=== PATIENT | female | born 1950 | race Caucasian/White ===

== ENCOUNTER → 2021-09-07 15:38 | Outpatient (CLI) | payer OTHER, SELFPAY ==
[2021-09-07 16:14] LABS: Add Manual Diff / Slide Review NO; Basophils Absolute Auto 0 /uL (0-100); Basophils Percent Auto 0.6 % (0-2); Eosinophils Absolute Auto 100 /uL (0-450); Eosinophils Percent Auto 2.2 % (2-4); Hematocrit 36.8 % (36-46); Hemoglobin 12.6 g/dL (12.0-16.0); Lymphocytes Absolute Auto 1400 /uL (1100-4500); Lymphocytes Percent Auto 25.9 % (25-40); Mean Corpuscular HGB Conc 34.3 % (30-36); Mean Corpuscular Hemoglobin 30.8 PG (26-34); Monocytes Absolute Auto 400 /uL (0-900); Monocytes Percent Auto 6.9 % (3-14); Neutrophils Absolute Auto 3600 /uL (1500-7000); Neutrophils Percent Auto 64.4 % (50-75); Platelet Count 268 X10^3/uL (150-400); Red Blood Cell Count 4.09 X10^6/uL (4.0-5.2); Red Cell Distribution Width 13.6 % (11.6-14.8); White Blood Cell Count 5.5 X10^3/uL (4.5-11.0)
[2021-09-07 17:47] LABS: BUN Creatinine Ratio 25.3 (6-22); Blood Urea Nitrogen 25 mg/dL (7-17); Calcium 9.5 mg/dL (8.4-10.2); Carbon Dioxide 23 mmol/L (22-32); Chloride 103 mmol/L (98-107); Estimated Glomerular Filt Rate > 60 mL/min (>60); Glucose 147 mg/dL (80-110); HEMOLYSIS < 15 (0-50); Potassium 4.2 mmol/L (3.4-5.1); Sodium 139 mmol/L (137-145)
[2021-09-08 06:28] LABS: Hemoglobin A1C% w Est Avg Glu 6.4 % (4.0-6.0)
== END ==
PROVIDERS: PCP Internal Medicine; Referring Provider Orthopaedic Surgery; Visit Provider Orthopaedic Surgery
DX: R73.9 Hyperglycemia, unspecified (principal); Z01.818 Encounter for other preprocedural examination; Z01.812 Encounter for preprocedural laboratory examination
CPT/HCPCS: 36415; 80048; 83036; 85025; 93005; 93010

== ENCOUNTER → 2021-09-26 10:55 | Outpatient (CLI) | payer OTHER, SELFPAY ==
[2021-09-26 11:54] LABS: COVID19 -Nasal RAPID Negative (Negative)
== END ==
PROVIDERS: PCP Internal Medicine; Referring Provider Orthopaedic Surgery; Visit Provider Orthopaedic Surgery
DX: Z20.822 Contact with and (suspected) exposure to COVID-19 (principal)
CPT/HCPCS: 87635; C9803

== ENCOUNTER 2021-09-28 07:29 | Day surgery (SDC) | payer OTHER, SELFPAY ==
[2021-09-14 12:56] VITALS: BMI 29.2
[2021-09-28] VITALS (15 sets, daily range): BP systolic 112–158; BP diastolic 67–94; PULSE 71–90; RESP 12–18; TEMP 36–36.8; O2SAT 92–99; BMI 29.2
[2021-09-28] MEDS: LACTATED RINGERS 1,000 ML 42 ML IV ×2 (08:01→09:50)
--- NOTE | 2021-09-28 08:25 | DI.RAD.S_ITS ---
PROCEDURE: XR KNEE LT 1TO2V INDICATIONS: post op total knee TECHNIQUE: Two views of the knee acquired. COMPARISON: None. FINDINGS: Bones: Patient is status post total knee arthroplasty. Hardware components are in expected positions. Visualized bony structures are intact. Soft tissues: Overlying postoperative changes are noted. IMPRESSION: Status post left total knee arthroplasty with expected postoperative findings. Dictated by: Harry Benz M.D. on 09/28/2021 at 10:52 Approved by: Harry Benz M.D. on 09/28/2021 at 10:53
--- NOTE | 2021-09-28 08:26 | PM.PREOP ---
Pre-operative Note COVID-19 COVID-19 status: Negative Result date/Date tested (Pos, Neg/Pending): 09/26/21 Interval Note History & Physical reviewed/Exam performed by Physician: Yes Changes to H&P: No
[2021-09-28] MEDS: CELECOXIB 200 MG CAPSULE PO (08:38)
[2021-09-28] MEDS: PREGABALIN 75 MG CAPSULE PO (08:38)
[2021-09-28] MEDS: TRANEXAMIC ACID 1,000 MG VIAL 1000 MG INJ ×2 (08:56→10:15)
[2021-09-28] MEDS: CEFAZOLIN 2 GM IN 0.9 % NACL 100 ML IV (08:56)
--- NOTE | 2021-09-28 09:15 | SUR.OPER ---
Supine on padded OR bed. Pillow under head, arms secured on padded armboards <90 degree abduction. Safety belt across torso. Non-operative leg secured with tape over blanket over lower leg. Operative leg secured in DeMayo/Fausto/Nathe positioner. Foam padded brace at thigh of operative leg. POSITION APPROVED BY SURGEON AND ANESTHESIA.
[2021-09-28] MEDS: BUPIVACAINE 0.5% W/ EPI (PF) 30 ML VIAL INJ ×2 (09:23→09:48)
[2021-09-28] MEDS: BUPIVACAINE LIPOSOME 266 MG/20 ML VIAL INJ (09:48)
[2021-09-28] MEDS: MORPHINE 4 MG/ML INJ INJ (09:48)
--- NOTE | 2021-09-28 10:25 | P.OP_ITS ---
Operative Date/Time/Diagnoses Date of procedure: 09/28/21 Time of procedure: 10:25 Pre-op diagnosis: Left knee osteoarthritis Post-op diagnosis: same Procedure & Clinicians Procedure: Left total knee replacement Same procedure as scheduled: Yes Indications: The patient has had progressively worsening left knee pain with radiographic changes consistent with arthritis. Non-operative management has failed and the patient has requested total knee replacement. The risks, benefits and alternatives to surgery were discussed with the patient prior to proceeding. Risks discussed included, but were not limited to, failure to relieve pain, stiffness, infection, nerve damage, deep venous thrombosis, pulmonary embolism, stroke, coma, heart attack, permanent paralysis and , as well as the potential need for eventual revision of the prosthetic. Surgeon: Isaias Sheehan Business Process Consultant: Thaddeus Noriega Click Yes if Unassisted: No Anesthesia Type: General and Local Operative Notes Findings: Severe medial and patellofemoral osteoarthritis with relative preservation of the lateral compartment. Closure Type: primary Specimen(s): none sent Prosthetic devices, grafts, tissues, transplants, or devices: Implants used in this procedure were manufactured by the [employer] and included the BCS II Journey total knee replacement with a size 5 left Oxinium femoral component, size 4 left non porous tibial base plate, a 9 mm cross-linked polyethylene tibial insert and a 32 mm oval Purvi II patella Applied: implant(s) Estimated Blood Loss (mL): 25 Blood products transfused: none Tourniquet time (min): 50 Procedure in detail: The patient was seen in the pre-operative area, where the left knee was identified as the operative site and this was marked with my initials. The patient received pre-operative antibiotics, and was taken to the operating room and placed on the operative table in the supine position. After satisfactory anesthesia, a motion and time study teacher out was performed. The left leg was encircled with a tourniquet about the proximal thigh, and the leg was prepared from the toes to the tourniquet with ChloroPrep in the usual fashion and draped through sterile drapes. The leg was elevated and exsanguinated with Eschmark bandage and the tourniquet inflated to 250 mmHg pressure. The knee was approached through an approximately 18 cm incision centered over the patella and carried into the knee through a medial parapatellar arthrotomy. The anterior osteophytes and soft tissues were removed. The rotational landmarks of Milton's line and the transepicondylar axis were marked on the femur with electrocautery, and intramedullary guide holes for the femur and tibia were created. The distal femoral cut was made in 6 degrees of valgus using the intramedullary guide at the +1 cut setting due to a mild flexion contracture. The proximal tibial cut was then made using the intramedullary guide, taking 9 mm of bone off the less involved side. The extension gap was checked and the rotation of the femoral component confirmed with the gap balancing blocks. The anterior, posterior and chamfer cuts were then made. The posterior osteophytes and soft tissues were then removed. The posterior capsule was injected with part of a mixture of 60 ml 0.25% Marcaine mixed with 20 ml Exparel and 4 mg of morphine for post-operative pain control. The remainder of this mixture was injected into the capsule and subcutaneous tissues during cement curing. The tibia was prepared with the rotation set by an extra medullary guide. Trial tibial and femoral components were then placed and the intercondylar notch cut through the femoral trial. Range of motion was 0-135 degrees, with good stability throughout the range. The patella was then cut to accommodate the patellar prosthetic. There was no need for a lateral release. The trials were then removed, and the femoral hole plugged with a bone plug. The bone was prepared with pulsatile lavage, and dried with a sponge. Cement was applied and the final prosthetics placed. Excess cement was removed during and after cement curing. After confirming there was no extruded cement posteriorly, the final tibial insert was placed. The knee was copiously irrigated and the tourniquet deflated. Hemostasis was obtained. The capsule was closed with interrupted # 2 polyester sutures. The subcutaneous layer was closed with 3-0 Vicryl, and the skin with a running 3-0 V-Lock suture and Dermabond. An Aquacel Ag dressing was applied and the patient was taken to recovery having tolerated the procedure well. The services of a skilled certified registered dental assistant were necessary to complete this case in an expedient manner. Correct positioning of the leg and retraction as well as suction and assistance with guide placement was necessary. Without the services of Mr. Noriega this case would not have been completed in a timely fashion. Complications: none Post-operative Condition: stable Disposition: PACU Plan for aftercare: The patient will be maintained on a standard total knee replacement protocol with weight bearing as tolerated. The patient will receive aspirin and sequential compression devices for DVT prophylaxis. The patient will be disch arged home when safe for the home environment.
[2021-09-28] MEDS: fentaNYL 100 MCG/2 ML INJ IV ×2 (10:32→10:44)
[2021-09-28] MEDS: HYDROMORPHONE 2 MG INJ IV ×2 (10:40→10:55)
[2021-09-28] MEDS: OXYCODONE/ACETAMINOPHEN 5/325 TABLET 1 TAB PO (10:42)
[2021-09-28] MEDS: OXYCODONE IR 5 MG TABLET PO (11:21)
--- NOTE | 2021-09-28 11:26 | SUR.PHASEI ---
report called to Sherry GAVIRIA and opportunity for questions given. pt is being transferred to room 204. pt updated on plan of care and is agreeable.
[2021-09-28] MEDS: ALPRAZolam 0.25 MG TABLET PO (11:35)
[2021-09-28] MEDS: LACTATED RINGERS 1,000 ML 100 ML IV ×2 (12:35→18:01)
--- NOTE | 2021-09-28 15:07 | PC.NURSE ---
Pt arrived from PACU @ 1145 Alert/oriented denies discomfort @ this time IVF infusing via pump as per MD orders into the LFA w\o incidence. Dsg to left knee CDI pulses ++ Call ligth w/in reach, bed alarm on for pt safety. Continue w/ plan of care.
--- NOTE | 2021-09-28 15:30 | PT.IIE ---
Current Diagnoses Unilateral primary osteoarthritis, left knee (09/28/21) Surgery Performed Operation Date: 09/28/21 08:45 Actual Procedures p Total Knee Arthroplasty(Left) - Isaias Sheehan MD Surgical History (Last Updated 09/14/21 @ 13:29 by Vivian Moon RN) History of arthroplasty of right knee History of hysterectomy Hx of colonoscopy Hx of dilation and curettage Hx of lithotripsy Hx of tonsillectomy Hx of tubal ligation Medical History (Last Reviewed 09/28/21 @ 08:01 by Oscar Kuhn RN) Acid reflux Arthritis Diabetes Gout HLD (hyperlipidemia) HTN (hypertension) Kidney stones Neuropathy Osteoarthritis Physical Therapy Inpatient Evaluation/Re-Eval M1 PT/OT-IP Prior Functional Status Start: 09/28/21 17:03 Freq: NEEDED Status: Active Protocol: Document 09/28/21 15:30 AB (Rec: 09/28/21 17:39 AB [id number]) Medical Review Prior Functional Status Medical History Reviewed Yes Communication able to make needs known Mobility and Gait pt stated that she is indpeendent with all mobilities and ambulation without AD Social History Household Members none Living Arrangements House Number of Floors (Floors) One Floor Number of Stairs To Enter/Railing? no steps to enter Home Environment Standard Height Toilet,Tub/ Shower Home Equipment Front Wheel Walker,Raised Toilet Seat Without Armrests, Hand Held Shower,Grab Bars In Shower Additional Social History Comment daughter will stay with pt until Sunday and stated that she has a friend who might also assist if needed pt has a tripod cane/benecane M2 PT-IP Current Condition Start: 09/28/21 17:03 Freq: NEEDED Status: Active Protocol: Document 09/28/21 15:30 AB (Rec: 09/28/21 17:39 AB [email or web address]) Physical Therapy Current Condition Current Condition Evaluation Date 09/28/21 Treatment Diagnosis s/p L TKA; difficulty in walking Onset Date 09/28/21 M3 PT-IP Subjective Start: 09/28/21 17:03 Freq: NEEDED Status: Active Protocol: Document 09/28/21 15:30 AB (Rec: 09/28/21 17:39 AB [email or web address]) Subjective Physical Therapy Visit Type Type Initial Evaluation Visit Start Time 15:30 Visit Stop Time 16:32 Total Visit Minutes 62 Number of HAND CANDY MOLDER Visits 0 Physical Therapy Visit Comments Patient Comments agreeable to do PT M4 PT-IP Mobility and Gait Start: 09/28/21 17:03 Freq: NEEDED Status: Active Protocol: Document 09/28/21 15:30 AB (Rec: 09/28/21 17:39 AB [email or web address]) PT-Bed Mobility Assessment Supine to Sit Supine to Sit Moderate Assistance PT-Transfer Assessment Sit to and From Stand Sit to and from Stand Moderate Assistance,1 Person Assistance,Use of Upper Extremities Equipment Transfer Assistive Device Gait Belt,Front Wheeled Walker Orthotic/Prosthetic Devices or Brace: No Transfers Transfer Destination Bedside Commode Transfer Technique Stand Step Pivot Transfer Ability Level of Assist Moderate Assistance,1 Person Assistance,Use of Upper Extremities Comments Mobility Comments pt completed supine to sit mod A and max cues for techniques . c/o increase L knee pain of 6/10 with movement. able to sit on EOB SBA. requested to use the toilet. completed sit to stand mod A and cues. cued for steadiness and use of FWW for support. step transfer using fWW to bedside commode mod A and cues. mod to max A for controlled descent to the toilet. completed sit to stand from bedside commode mod A. Assisted with brief management . (+) LOB during standing using FWW for support requiring max A for steadiness and balance. able to ambulate to the chair ~ 3ft using FWW mod A and max cues. slight L knee buckling and cued for quads activation. positioned pt on the chair. call light and table placed within reach. ice pack provided. Gait Assessment Gait Gait Assistance Required: Moderate Assistance Distance (Feet) 3 Able to Maintain Weight Bearing Status Yes During Gait Assistive Devices Assistive Device Gait Belt,Front Wheeled Walker Orthotic/Prosthetic Devices or Brace: No Gait Deviations General Gait Pattern Antalgic,Decreased Stride Length,Decreased Feet Clearance,Step-to Gait Factors Limiting Gait Function Factors Limiting Gait Function Decreased Activity Tolerance, Decreased Strength,Limited Range of Motion,Pain,Poor Balance,Poor Safety Awareness PT-Balance Assessment Sitting Balance and Reactions Static Sitting Balance Ability Good Dynamic Sitting Balance Ability Good Standing Balance and Reactions Static Standing Balance Ability Poor Dynamic Standing Balance Ability Poor Device Used FWW M5 PT-IP Objective Assessments Start: 09/28/21 17:03 Freq: NEEDED Status: Active Protocol: Document 09/28/21 15:30 AB (Rec: 09/28/21 17:39 [email or web address]) Orientation Orientation/Cognition Level of Alertness Alert Orientation Name,Place,Situation Language Function Ability No Deficits Noted Safety Awareness Decreased Safety Awareness Memory Description Short Term Impaired Gross Range of Motion Lower Extremity ROM Assessment Left Impaired Impairments PROM: L knee flexion: ~ 30 degrees with pain limiting movement AROM: L knee extension: ~ 10 deg less to 0 Strength Lower Extremity Strength Assessment Left Impaired Hip 3+/5 Knee 3+/5 Coordination Assessment Gross Coordination Gross Coordination WNL Sensation Assessment Sensation Gross Sensation WNL Muscle Tone Muscle Tone WNL Yes M6 PT-IP Treatment Start: 09/28/21 17:03 Freq: NEEDED Status: Active Protocol: Document 09/28/21 15:30 AB (Rec: 09/28/21 17:39 [email or web address]) Physical Therapy Treatment Education Education Provided Precautions,Weight Bearing Status,Post-Op Packet,Safety M7 PT-IP Assessment and Plan Start: 09/28/21 17:03 Freq: NEEDED Status: Active Protocol: Document 09/28/21 15:30 AB (Rec: 09/28/21 17:39 [email or web address]) PT Summary Assessment and Plan Potential Rehabilitation Potential Fair Status of Condition at Evaluation Evolving Summary Impairments Pain,ROM,Strength,Balance, Coordination,Sensation,Tone, Cognition,Bed Mobility, Transfers,Gait,Activity Tolerance Assessment Summary pt s/p L TKA and just had surgery this morning. Pt requiring mod A with transfers using FWW with LOB during standing. will continue to assess mobility. caregiver training set up for tomorrow at 9am. Goals Bed Mobility Goal Standby Assistance Transfer Goal Standby Assistance,Front Wheeled Walker Gait Goal Standby Assistance,Front Wheel Walker Gait Distance 150 Days to Meet Goals 5 Frequency of Treatment Frequency Of Treatment Twice a Day Treatment Plan Physical Therapy Treatment Plan Bed Mobility Training,Transfer Training,Gait Training, Therapeutic Exercise,Balance Retraining,Post Op Education, Discharge Planning,Hot or Cold Pack,Neuromuscular Re-ed, Coordination Retraining,Manual Therapy Weight Bearing Status Weight Bearing Status Weight Bear as Tolerated Allowed Weight Bearing Amount (enter % LLE WBAT or #) (%) Recommendations To Nursing Amount of Assist Needed 1 Person Assist Discharge Recommendations PT Discharge Recommendations Home with 18/09 Assist Available,Home Health Transportation Needs at Discharge Private Vehicle,Wheelchair/ Cabulance
[2021-09-28] MEDS: HYDROMORPHONE 2 MG TABLET PO (16:01)
[2021-09-28] MEDS: INSULIN LISPRO 100 UNIT/ML 3ML VIAL SUBCUT (17:00)
[2021-09-28] MEDS: ACETAMINOPHEN 325 MG TABLET 650 MG PO (18:04)
[2021-09-28] MEDS: DOCUSATE 100 MG CAPSULE PO (21:09)
[2021-09-28] MEDS: METFORMIN HCL 500 MG TABLET PO (21:09)
[2021-09-28] MEDS: ASPIRIN EC 81 MG TABLET PO (21:09)
[2021-09-28] MEDS: ATORVASTATIN 20 MG TABLET PO (21:09)
[2021-09-28] MEDS: OXYCODONE IR 10 MG TABLET PO (21:09)
[2021-09-28] MEDS: allopurinoL 300 MG TABLET PO (21:09)
[2021-09-29] MEDS: ACETAMINOPHEN 325 MG TABLET 650 MG PO ×2 (01:36→06:16)
[2021-09-29] MEDS: OXYCODONE IR 10 MG TABLET PO ×3 (01:37→10:17)
[2021-09-29 04:00] VITALS: BP 147/74; PULSE 75; RESP 14; TEMP 36.5; O2SAT 95
[2021-09-29 06:12] LABS: Hematocrit 34.5 % (36-46); Hemoglobin 11.6 g/dL (12.0-16.0)
[2021-09-29 07:25] VITALS: BP 140/74; PULSE 79; RESP 16; TEMP 36.7; O2SAT 98
--- NOTE | 2021-09-29 07:46 | PM.DS.1 ---
History of Present Illness History of Present Illness Date Patient Seen: 09/29/21 Time Patient Seen: 07:46 Chief complaint: OPB Narrative: The history and physical is contained in the chart previously completed note. Please refer to that note for this information. Discharge Providers Provider Date of admission: September 28, 2021 Discharge Date: 09/29/21 Primary care physician: Mona George MD Consults: 09/28/21 11:58 Consult to Discharge Planning Routine Comment: Consult to Physical Therapy Evaluate & Treat Comment: Physician Instructions: postop TKA protocol Discharge provider: Isaias Sheehan MD Summary Hospital Course Discharge Diagnosis: 1. Left knee osteoarthritis 2. Post hemorrhagic anemia Hospital Course: The patient was admitted to the hospital and taken directly to the operating room on September 28, 2021 where she underwent a left total knee replacement without complications. On postoperative day 1 she was reasonably comfortable. She had a mild post hemorrhagic anemia. At the time of this dictation is anticipated she will be able to discharge home. Status at Discharge Cognitive/behavioral status at discharge: at baseline, oriented Functional status at discharge: uses cane/walker Overall status at discharge: patient is progressing back to baseline Time Spent with Patient Time spent: Less than 30 minutes Exam Vital Signs (past 8 hours): - 09/29/21 04:00 Temperature 97.7 F Pulse Rate 75 Respiratory Rate 14 Blood Pressure 147/74 H Pulse Oximetry 95 Oxygen Flow Rate 0 Oxygen Delivery Method Room Air Oxygen Flow Rate 0 Narrative Exam Narrative: Left knee wound is dressed with no drainage on the bandage. Calf is soft. Light touch and motion are intact in the left lower extremity. Objective Labs Result Diagrams: 09/29/21 05:55 Labs: Laboratory Results - last 24 hr 09/29/21 05:55 Hgb 11.6 L Hct 34.5 L PFSH Medical History Acid reflux Arthritis Diabetes Gout HLD (hyperlipidemia) HTN (hypertension) Kidney stones Neuropathy Osteoarthritis Surgical History (Updated 09/14/21 @ 13:29 by Vivian Moon RN) History of arthroplasty of right knee History of hysterectomy Hx of colonoscopy Hx of dilation and curettage Hx of lithotripsy Hx of tonsillectomy Hx of tubal ligation Social History household members: none Smoking Status: Former smoker alcohol intake: current Discharge Assessment & Plan Assessment and Plan Assessment: Stable postoperative day 1 status post left total knee replacement. It is anticipated she will be able to discharge home today. She does have a mild post hemorrhagic anemia but this should respond to normal diet. Plan of Treatment: Discharge today. Follow up in my office in 10-14 days. Discharge prescriptions have been sent for oxycodone. She will continue her meloxicam and has been instructed on the use of Tylenol for additional pain control. She will also use aspirin 81 mg twice a day for DVT prophylaxis. Discharge Plan Discharge Plan Patient Disposition: Home Discharge orders & Medications Discharge Orders: Discharge (Order); Ordered 09/29/21 Ordered By: Isaias Sheehan Prescriptions: New acetaminophen 325 mg Tablet 650 mg PO Q6HR Qty: 100 0RF aspirin 81 mg Tablet,Delayed Release (Dr/Ec) 81 mg PO BID Qty: 84 0RF oxycodone 5 mg Tablet 5 mg PO Q4H PRN (Reason: Pain, Moderate (4-6)) Qty: 40 0RF Continued losartan 50 mg Tablet 50 mg PO DAILY metformin 500 mg Tablet 500 mg PO BID meloxicam 15 mg Tablet 15 mg PO DAILY acetaminophen 500 mg Tablet 500 mg PO SEEINSTR Rx Instructions: 3 tabs qam, 1 tab bedtime simvastatin 40 mg Tablet 40 mg PO BEDTIME allopurinol 300 mg Tablet 300 mg PO BEDTIME metoprolol succinate 25 mg Tablet Extended Release 24 Hr 25 mg PO DAILY cetirizine [Aller-Joanna] 10 mg Tablet 10 mg PO DAILY diphenhydramine-acetaminophen [Acetaminophen PM] 25-500 mg Tablet 2 tab PO BEDTIME Discontinued aspirin [Aspir-Low] 81 mg Tablet,Delayed Release (Dr/Ec) 81 mg PO DAILY Follow up/Referrals: Mona George MD [Primary Care Provider] - Isaias Sheehan MD [Physician] - 2 Weeks Diet/Activity/Treatments Diet: Diet as Tolerated and Carb-consistent/Diabetic Activity: You may bear weight as tolerated on your left leg. Cold/Heat Therapy: You may apply ice to your left knee for 15 minutes every hour as needed for pain control. Skin/Wound/Dressing Care Report to your healthcare provider any signs of infection, such as:: chills, fever, night sweats, increased pain, unusual drainage and unusual redness Dressing: You may remove the Pedro wrap 3 days after surgery and shower normally. Leave the deeper dressing in place until your follow-up. If the central strip of the deeper dressing becomes saturated with either water or blood, please call the office to have it evaluated. Visit Report/Discharge Packet Instructions: DI for Knee Replacement Stand Alone Forms: Surgery Discharge Discharge Data Primary Care Provider: Mona George Attending Provider: Isaias Sheehan VTE Deep Vein Thrombosis/Pulmonary Embolism Present on Admission: No
[2021-09-29 08:43] VITALS: BP 147/74
[2021-09-29] MEDS: MELOXICAM 7.5 MG TABLET 15 MG PO (08:43)
[2021-09-29] MEDS: ASPIRIN EC 81 MG TABLET PO (08:43)
[2021-09-29] MEDS: LOSARTAN 50 MG TABLET PO (08:43)
[2021-09-29 08:44] VITALS: BP 147/76
[2021-09-29] MEDS: DOCUSATE 100 MG CAPSULE PO (08:44)
[2021-09-29] MEDS: METFORMIN HCL 500 MG TABLET PO (08:44)
[2021-09-29] MEDS: METOPROLOL ER 25 MG TABLET PO (08:44)
[2021-09-29] MEDS: LORATADINE 10 MG TABLET PO (08:45)
--- NOTE | 2021-09-29 09:20 | PT.IPTN ---
Current Diagnoses Unilateral primary osteoarthritis, left knee (09/28/21) Surgery Performed Operation Date: 09/28/21 08:45 Actual Procedures p Total Knee Arthroplasty(Left) - Isaias Sheehan MD Physical Therapy Treatment Note M2 PT-IP Current Condition Start: 09/28/21 17:03 Freq: NEEDED Status: Active Protocol: Document 09/28/21 15:30 AB (Rec: 09/28/21 17:39 AB [id number]) Physical Therapy Current Condition Current Condition Evaluation Date 09/28/21 Treatment Diagnosis s/p L TKA; difficulty in walking Onset Date 09/28/21 M3 PT-IP Subjective Start: 09/28/21 17:03 Freq: NEEDED Status: Active Protocol: Document 09/29/21 09:00 KS (Rec: 09/29/21 10:50 KS [id number]) Subjective Physical Therapy Visit Type Type Treatment Note Visit Start Time 09:00 Visit Stop Time 09:20 Total Visit Minutes 20 Number of GLUE MACHINE OPERATOR Visits 1 Physical Therapy Visit Comments Patient Comments agreeable to do PT Therapy Pain Assessment Location Left Knee Intensity 6 Scale Used Numeric (0 - 10) Description With Movement Pain Behaviors Guarding Pain Management Techniques Elevation,Re-positioning M4 PT-IP Mobility and Gait Start: 09/28/21 17:03 Freq: NEEDED Status: Active Protocol: Document 09/29/21 09:00 KS (Rec: 09/29/21 10:50 KS [id number]) PT-Bed Mobility Assessment Supine to Sit Supine to Sit Standby Assistance Sit to Supine Sit to Supine Standby Assistance Scooting Scooting to Edge of Bed Standby Assistance PT-Transfer Assessment Sit to and From Stand Sit to and from Stand Standby Assistance,1 Person Assistance,Use of Upper Extremities Equipment Transfer Assistive Device Gait Belt,Front Wheeled Walker Orthotic/Prosthetic Devices or Brace: No Transfers Transfer Destination Bed Transfer Technique Pt ambulated w/ FWW Transfer Ability Level of Assist Standby Assistance,Contact Guard Assistance,1 Person Assistance,Use of Upper Extremities Comments Mobility Comments Pt in bed and daughter in room upon arrival. Pt eager to return home. SBA for sup<>sit using RLE to self assist LLE out of bed. Demonstrated gait belt application and FWW guarding to pts daughter who was able to complete. Pt sit<> stand w/ FWW SBA and ambulated ~60 ft around room w/ FWW SBA to CGA w/ cues for L knee extension/quad facilitation. Pt returned to bed SBA, reviewed ther ex and at home safety. Pt left in bed w/ all needs in reach. Gait Assessment Gait Gait Assistance Required: Standby Assistance,Contact Guard Assist Distance (Feet) 60 Able to Maintain Weight Bearing Status Yes During Gait Assistive Devices Assistive Device Gait Belt,Front Wheeled Walker Orthotic/Prosthetic Devices or Brace: No Gait Deviations General Gait Pattern Antalgic,Decreased Stride Length,Decreased Feet Clearance,Step-to Gait Factors Limiting Gait Function Factors Limiting Gait Function Decreased Activity Tolerance, Decreased Strength,Limited Range of Motion,Pain,Poor Balance,Poor Safety Awareness Comments Gait Comments Pt c/o increased pain w/ ambulation, but had good use of FWW and required min cues for knee extension. Stair Climbing Assessment Comments Stair Climbing Comments No stairs at home. PT-Balance Assessment Sitting Balance and Reactions Static Sitting Balance Ability Good Dynamic Sitting Balance Ability Good Standing Balance and Reactions Static Standing Balance Ability Good Dynamic Standing Balance Ability Good Device Used FWW M5 PT-IP Objective Assessments Start: 09/28/21 17:03 Freq: NEEDED Status: Active Protocol: Document 09/28/21 15:30 AB (Rec: 09/28/21 17:39 AB [id number]) Orientation Orientation/Cognition Level of Alertness Alert Orientation Name,Place,Situation Language Function Ability No Deficits Noted Safety Awareness Decreased Safety Awareness Memory Description Short Term Impaired Gross Range of Motion Lower Extremity ROM Assessment Left Impaired Impairments PROM: L knee flexion: ~ 30 degrees with pain limiting movement AROM: L knee extension: ~ 10 deg less to 0 Strength Lower Extremity Strength Assessment Left Impaired Hip 3+/5 Knee 3+/5 Coordination Assessment Gross Coordination Gross Coordination WNL Sensation Assessment Sensation Gross Sensation WNL Muscle Tone Muscle Tone WNL Yes M6 PT-IP Treatment Start: 09/28/21 17:03 Freq: NEEDED Status: Active Protocol: Document 09/29/21 09:00 KS (Rec: 09/29/21 10:50 KS [id number]) Physical Therapy Treatment Exercises Exercises Ankle Pumps,Gluteal Sets,Quad Sets,Heel Slides,Straight Leg Raises Education Education Provided Precautions,Weight Bearing Status,Post-Op Packet,Safety Other Treatments Other Treatment Performed Completed caregiver training w / pts daughter who was able to provide appropriate assist and cues. M7 PT-IP Assessment and Plan Start: 09/28/21 17:03 Freq: NEEDED Status: Active Protocol: Document 09/29/21 09:00 KS (Rec: 09/29/21 10:50 KS [id number]) PT Summary Assessment and Plan Potential Rehabilitation Potential Fair Status of Condition at Evaluation Evolving Summary Impairments Pain,ROM,Strength,Balance, Coordination,Sensation,Tone, Cognition,Bed Mobility, Transfers,Gait,Activity Tolerance Assessment Summary Pt progressing well this AM, only requiring SBA to CGA for all mobility. Ambulated ~60 ft w/ FWW min cues for knee ext/ quad facilitation. Completed caregiver training w/ pts daughter who confirms she can stay w/ pt to assist as needed . Pt will benefit from OPPT to improve strength, ROM, stability, and gait. Goals Bed Mobility Goal Standby Assistance Transfer Goal Standby Assistance,Front Wheeled Walker Gait Goal Standby Assistance,Front Wheel Walker Gait Distance 150 Days to Meet Goals 5 Frequency of Treatment Frequency Of Treatment Twice a Day Treatment Plan Physical Therapy Treatment Plan Bed Mobility Training,Transfer Training,Gait Training, Therapeutic Exercise,Balance Retraining,Post Op Education, Discharge Planning,Hot or Cold Pack,Neuromuscular Re-ed, Coordination Retraining,Manual Therapy Weight Bearing Status Weight Bearing Status Weight Bear as Tolerated Allowed Weight Bearing Amount (enter % LLE WBAT or #) (%) Recommendations To Nursing Amount of Assist Needed 1 Person Assist Discharge Recommendations PT Discharge Recommendations Home with Assistance, Outpatient PT Transportation Needs at Discharge Private Vehicle,Wheelchair/ Cabulance
--- NOTE | 2021-09-29 09:54 | PC.NURSE ---
Addendum entered by Christal Jameson R.N. 09/29/21 10:58: Pt transportation arrived. Pt escorted by staff via W/C to waiting vehicle. D/C in stable post op status Original Note: Pt denies discomfort. Surgical knee dsg CDI CBG 118, no coverage required. Discharge orders received Home instructions given w/understanding.
--- NOTE | 2021-09-29 12:37 | CM.DANOTE ---
Patient is a 71 yo female who was admitted on 09/28/21 for LTKA. Pt has [facility] for insurance and her PCP is Mona George. EMR was reviewed. Per Ortho MD, pt tolerated procedure well and stable for d/c home today with no identified barriers to discharge. Per PT, recommending return home and completed CG training with Dtr bedside today and cleared for safe discharge to home via Dtr POV. SW met briefly bedside with pt and Dtr and they confirm pt resides at home in [place] alone but has local supportive family and pt is independent at baseline and does not use DME to ambulate and still drives and denies any hx of HH or SNF and Dtr plans to stay with pt at discharge for a couple days to confirm pt safe for home alone and they do not anticipate any further needs at d/c today and agreeable with plan of home later this morning Plan: Patient to d/c home today via Dtr POV and outpt f/u with Ortho post discharge. No further SW needs at this time. PRESTON Aguiar Discharge Planning/Care Management CM Discharge Assessment Start: 09/29/21 12:35 Freq: Status: Active Protocol: Document 09/29/21 12:36 BF (Rec: 09/29/21 12:37 [id number]) Discharge Planning Assessment Assigned Grinding Wheel Facer PRESTON Floyd DPOA/Assigned Designee Name Chris Wallace Contact Information [phone] Advance Directives? No Advance Directives on File No History Provided By Patient,Family Member,Medical Record Has Patient been admitted in last 30 No days? Prior Living Arrangements House Household Members none Type of transporation used prior to Drives own vehicle admit Independent with ADL's Yes Is patient alert and oriented? Yes Caregiver for Another No Community Services used prior to Physical Therapy admission: DME Already Rented / Owned Cane Patient/Family Preference OP PT Therapy Barriers to Discharge No Discharge Plan Home Community Services Physical Therapy Transportation Arrangement Dtr bedside for CG training and can transport home today Referrals Initiated None needed Whiteboard Updated in Patient Room with Yes name and ext. # of Grinding Wheel Facer Review Status In Process Please Provide Date Initial DC 09/29/21 Assessment Was Performed Next Review Type Continued Stay Review Pre-Anesthesia Assessment Start: 09/14/21 12:56 Freq: Status: Complete Protocol: Document 09/14/21 12:56 CAB (Rec: 09/14/21 13:47 [facility] [id number]) Pre-Anesthesia Assessment Patient Information Reviewed Via Phone Assessment Assessment Completed With Patient Diagnostic Results BMP/CMP,CBC,EKG Comment Labs/ECG @ [facility] 09/07/21, COVID screen -pt will verify for 09/26 with lab Primary Care Provider Mona George Seen Specialist in Last 12 Months Yes Specialist Seen Orthopedist Primary Language 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 Required No Height 167.64 cm Weight 82.1 kg Body Mass Index (BMI) 29.2 Hearing Ability Normal Visual Assist Magnifying Glass Dentition Type Teeth, Natural Present,Partial - Upper Barriers to Learning None Hx Anesthesia Reactions Yes: Sometimes I wake up crying Hx Family Anesthesia Reaction No Hx Malignant Hyperthermia No Hx Blood Transfusions Yes: 1976 s/p delivery Hx Blood Transfusion Reaction No Anesthesia Review Requested No alcohol intake current alcohol intake frequency holidays/special occasions only Smoking Status Former smoker how long ago did patient quit smoking Quit 22 years ago Substance Use Type marijuana Comment Marijuana cookies Pain Present Pain Reported Musculoskeletal Symptoms Abnormal Gait,Difficulty Walking,Joint Pain History of Falling (Recent or History of Yes ) Patient is completely paralyzed or No completely immobile Mental Status Oriented to own ability Is patient on oxygen? No Does patient have SMITH/SOB No Hx Sleep Apnea No Currently Taking a Beta [place] Yes: Metoprolol Hx Chest Pain No Hx SOB No Hx Syncope or Dizziness No Anti-Coagulant Therapy No Has a Kick Press Operator No Cardiac Testing No Hx Pacemaker/ICD No Pacemaker Rep Required? No Cardiac Clearance Received Not Applicable Diet Type At Home Regular dysphagia No Gastrointestinal Symptoms Reflux Urinary Catheter Present No Hx Urinary Self Catheterization No Diabetes Yes: Pt checks blood sugar once a day HgbA1C 6.4 Date 09/07/21 Patient No Lactating No Presence of External or Internal Medical Yes: Right knee Devices Have you had any close contact with Yes: Co-worker tested positive someone diagnosed with COVID-19? 09/13/21 Are you experiencing any of these No symptoms symptoms? Received a COVID vaccine? Yes Received all doses? Yes Marital Status / Lives With none Prior Living Arrangements House Number of Floors (Floors) One Floor Support System Child/Children Does the Patient Have Assistance After Yes: Daughter will stay w/pt [facility] to assist with care Patient Discharge Plan Description Return Home Comment Pt not advised length of stay per surgeo, pt would like to go home same day Feels Safe in Current Environment Yes Been Physically Hurt or Threatened By a No Person in Current Environment Do you have thoughts of harming yourself None or others? Are you currently considering suicide? No Do you have a plan to hurt yourself or No Plan others? Do You Have Any Spiritual Beliefs That No May Affect Your HC Choices? Do You Have Any Cultural Practices That No May Affect Your HC Choices? Comment Baptism Who Can We Speak to About Patient's Care Family, friends Identifying Code for Release of Patient Declines to issue Information Health Care Proxy/Next of Kin Sunshine (daughter) Health Care Proxy Emergency Contact Name Sunshine (daughter) Emergency Contact Advance Directives? No Power of Knot Tying Operator No PAC Instructions Diabetes instructions,Do not shave/clip surgical site, Durable medical equipment, Medications to take/avoid, Nasal antibiotic,No ETOH/ petroleum product on skin DOS, NPO,Pre-surgical wash,Sturdy shoes/comfortable clothes,Do not bring valuables and remove jewelry
== END 2021-09-29 10:40 | disposition home or self-care (01) ==
LOC: OR 07:32 → AC 11:51
PROVIDERS: PCP Internal Medicine; Referring Provider Orthopaedic Surgery; Visit Provider Orthopaedic Surgery
PROC: 0SRD0JZ Replacement of Left Knee Joint with Synthetic Substitute, Open Approach (ICD-10-PCS; CPT 27447; principal; 2021-09-28 08:45)
DX: M17.12 Unilateral primary osteoarthritis, left knee (principal); E11.9 Type 2 diabetes mellitus without complications; I10 Essential (primary) hypertension; E78.5 Hyperlipidemia, unspecified; Z79.84 Long term (current) use of oral hypoglycemic drugs; D50.0 Iron deficiency anemia secondary to blood loss (chronic)
CPT/HCPCS: 27447; 36415; 73560; 82962; 85014; 85018; 97116; 97162; 97530; C1776; C1713; C9290; J0360; J0690; J1100; J1170; J1815; J2250; J2270; J2405; J2704; J3010

== ENCOUNTER → 2023-03-07 11:56 | Outpatient (CLI) | payer OTHER, SELFPAY ==
[2021-09-28 14:43] VITALS: BMI 29.2
--- NOTE | 2023-03-07 | DI.MRI.S_ITS ---
PROCEDURE: MR SHOULDER RT WO CON INDICATIONS: impingement syndrome right shoulder TECHNIQUE: Noncontrast oblique coronal T2 fast spin echo with fat saturation, oblique sagittal T1 spin echo and T2 fast spin echo with fat saturation, axial T1 spin echo and T2 fast spin echo with fat saturation through the shoulder. COMPARISON: None. FINDINGS: Image quality: Excellent. Rotator cuff: Low to moderate grade articular and bursal surface partial thickness tear involving distal supraspinatus at its insertion on the humeral head is seen extending to musculotendinous junction. Low-grade articular surface partial-thickness tear involving distal infraspinatus is also noted at its insertion on the humeral head. Low to moderate grade partial-thickness tear involving distal subscapularis is seen. No full-thickness rotator cuff tendon rupture. Sagittal images demonstrate mild to moderate supraspinatus muscle atrophy. Bones and bursae: No bone marrow contusions or fractures. Moderate acromioclavicular joint osteoarthritic changes are seen with joint space narrowing and downward osteophyte formation depressing the musculotendinous junction of supraspinatus. The acromion demonstrates conventional anatomy, without an os acromiale. There is moderate amount of joint effusion and subacromial subdeltoid bursal fluid, no gross loose bodies. Capsule and soft tissues: Fraying of superior anterior labrum with T2 hyperintense signal at 12 to 2 o'clock position is seen suggestive of superior anterior labral tear. The long head of the biceps tendon demonstrates normal location and morphology. The rotator interval appears normal, without fibrosis. The coracohumeral ligament is normal in thickness. IMPRESSION: 1. Low to moderate grade articular and bursal surface partial thickness tear involving distal supraspinatus extending to musculotendinous junction. Low-grade articular surface partial-thickness tear involving distal infraspinatus. Low to moderate grade intrasubstance partial-thickness tear involving distal subscapularis. No full-thickness rotator cuff tendon rupture. Mild to moderate supraspinatus muscle atrophy. 2. Moderate acromioclavicular joint osteoarthritis. No fracture or dislocation. Moderate amount of joint effusion and subacromial subdeltoid bursal fluid, no gross loose bodies. 3. Suggestion of subtle superior anterior labral tear at 12 to 2 o'clock position. Dictated by: Eliceo Tucker M.D. on 03/07/2023 at 16:36 Approved by: Eliceo Tucker M.D. on 03/07/2023 at 16:38
== END ==
LOC: MRI 11:57
PROVIDERS: PCP Internal Medicine; Referring Provider Orthopaedic Surgery; Visit Provider Orthopaedic Surgery
DX: M75.111 Incomplete rotator cuff tear or rupture of right shoulder, not specified as traumatic (principal); M75.41 Impingement syndrome of right shoulder; M19.011 Primary osteoarthritis, right shoulder; M25.411 Effusion, right shoulder
CPT/HCPCS: 73221

== ENCOUNTER → 2024-10-02 13:37 | Outpatient (CLI) | payer OTHER, SELFPAY ==
[2021-09-28 14:43] VITALS: BMI 29.2
== END ==
PROVIDERS: Family Provider Family Medicine; PCP Family Medicine; Referring Provider Family Medicine; Visit Provider Family Medicine
DX: R20.2 Paresthesia of skin (principal)
CPT/HCPCS: 95885; 95886; 95910